=== PATIENT | female | born 1970 | race Caucasian/White ===

== ENCOUNTER → 2024-01-12 12:11 | Outpatient (REF) | payer OTHER, SELFPAY | LOC: PAVMRI 12:11 | PROVIDERS: ATTENDING PHYSICIAN Psychiatry & Neurology Neurology; FAMILY PHYSICIAN Student in an Organized Health Care Education/Training Program | DX: G35 Multiple sclerosis (principal) | CPT/HCPCS: 70543; 70553; A9575 ==

== ENCOUNTER → 2024-01-14 11:59 | Outpatient (REF) | payer OTHER, SELFPAY | LOC: PAVMRI 11:59 | PROVIDERS: ATTENDING PHYSICIAN Psychiatry & Neurology Neurology; FAMILY PHYSICIAN Student in an Organized Health Care Education/Training Program | DX: G35 Multiple sclerosis (principal) | CPT/HCPCS: 72156; A9575 ==